=== PATIENT | male | born 1955 | race Caucasian/White ===

== ENCOUNTER 2018-04-30 05:43 | Day surgery (SDC) | payer OTHER ==
[~2018-04-30 05:43] MED LIST: ASPIR 8181 MG PO; ENALAPRIL MALEA20 MG PO; GLIPIZIDE ER2.5 MG PO; METFORMIN HCL500 MG PO; METOPROLOL SUC100 MG PO
[2018-04-30] MEDS ORDERED: CIPRO500 MG PO (08:22)
[2018-04-30] MEDS ORDERED: RECTICARE30 GM TOP (08:22)
[2018-04-30] MEDS ORDERED: PERCOCET 5-3251 EACH PO (08:22)
[2018-04-30] MEDS ORDERED: FLAGYL500MG PO (08:22)
[2018-04-30] MEDS ORDERED: PROTONIX40 MG PO (08:22)
== END 2018-04-30 12:40 | disposition home or self-care (01) ==
LOC: CIR.AMB 05:43
DX: K60.1 Chronic anal fissure (principal); K62.4 Stenosis of anus and rectum